=== PATIENT | female | born 1955 | race Hispanic/Latino ===

== ENCOUNTER 2018-04-08 20:55 | Emergency (ER) | payer OTHER ==
[2018-04-08 20:56] VITALS: BMI 33.6
[2018-04-08 21:25] VITALS: BP 110/69; PULSE 95; RESP 20; TEMP 98.5; O2SAT 95
--- NOTE | 2018-04-08 21:40 | C.PDOC ---
History Of Present Illness <Kelsey Webb - Last Filed: 04/08/18 21:41> <Blayne Salcido DO - Last Filed: 04/09/18 00:07> Patient is a 62 year old female who reports for evaluation after she fell after she drank alcohol today. She was reportedly at drinking at a bar tonight when she felt dizzy, and fell off the barstool and hit her head. Now complains of pain to her head and face. at bedside. Unable to obtain ROS since patient is intoxicated. (Kelsey Webb) <Kelsey Webb - Last Filed: 04/08/18 21:41> <Blayne Salcido DO - Last Filed: 04/09/18 00:07> - HPI Chief Complaint (Nursing): Trauma Past Medical History - Medical History PMH: Arthritis, Depression (NOT ON MEDS), Hypercholesterolemia, Hypothyroidism, Pneumonia ("MANY YEARS AGO") Denies: Chronic Kidney Disease Surgical History: Endoscopy Family History: States: Unknown Family Hx - Social History Hx Alcohol Use: Yes Hx Substance Use: No - Immunization History Hx Tetanus Toxoid Vaccination: No Hx Influenza Vaccination: No Hx Pneumococcal Vaccination: No <Kelsey Webb - Last Filed: 04/08/18 21:41> Vital Signs: Last Vital Signs Temp 98.5 F 04/08/18 21:03 Pulse 95 H 04/08/18 21:03 Resp 20 04/08/18 21:03 BP 110/69 04/08/18 21:03 Pulse Ox 95 04/08/18 21:53 Review Of Systems Review Of Systems: ROS cannot be obtained secondary to pt's inabilty to answer questions. <Kelsey Webb - Last Filed: 04/08/18 21:41> Physical Exam - Physical Exam Appears: Other (Intoxicated, able to speak but gets distracted easily.) Skin: Warm, Dry Head: Swelling (Swelling and tenderness to right parietal scalp. No active bleeding noted. ), Abrasion (Abrasion with dried blood to nasal bridge, abrasion above right eyebrow and abrasion above lip on right ) Eye(s): bilateral: PERRL, EOMI Nose: No Discharge, No Epistaxis Oral Mucosa: Moist Lips: No Contusion, No Laceration Teeth: Other (Only has upper teeth. No lower teeth. ) Neck: No Midline Cervical Tenderness, No Paracervical Tenderness Cardiovascular: Rhythm Regular Respiratory: Normal Breath Sounds, No Rales, No Rhonchi, No Stridor, No Wheezing Gastrointestinal/Abdominal: Bowel Sounds, Soft, No Tenderness Back: No CVA Tenderness, No Vertebral Tenderness Extremity: Other (Abrasion to right knee with dried blood. Good ROM of hips and knees without tenderness or obvious deformity. ) Extremity: Bilateral: Hips Non-Tender, No Pedal Edema, Pelvis-Stable Pulses: Left Dorsalis Pedis: Normal, Right Dorsalis Pedis: Normal <Kelsey Webb - Last Filed: 04/08/18 21:41> ED Course And Treatment O2 Sat by Pulse Oximetry: 95 <Kelsey Webb - Last Filed: 04/08/18 21:41> Medical Decision Making <Kelsey Webb - Last Filed: 04/08/18 21:41> <Blayne Salcido DO - Last Filed: 04/09/18 00:07> Medical Decision Making: CT head ordered CT facial bones ordered Tylenol 650mg PO ordered. (Kelsey Webb) Disposition <Kelsey Webb - Last Filed: 04/08/18 21:41> - Disposition Disposition Time: 11:45 <Blayne Salcido DO - Last Filed: 04/09/18 00:07> - Disposition Referrals: Andreas Birmingham MD [Medical Doctor] - Disposition: HOME/ ROUTINE Condition: GOOD Additional Instructions: DARLEEN SULTANA, thank you for letting us take care of you today. The emergency medical care you received today was directed at your acute symptoms. If you were prescribed any medication, please fill it and take as directed. It may take several days for your symptoms to resolve. Return to the Emergency Department if your symptoms worsen, do not improve, or if you have any other problems. Please contact your doctor or call one of the physicians/clinics you have been referred to that are listed on the Patient Visit Information form that is included in your discharge packet. Bring any paperwork you were given at discharge with you along with any medications you are taking to your follow up visit. Our treatment cannot replace ongoing medical care by a primary care provider outside of the emergency department. Thank you for allowing the [facility] team to be part of your care today. Do not drink too much alcohol at one time. Continue taking the antibiotic medication you are already on until it is completed. Follow up with your primary care doctor in 2-3 days for re-evaluation and further management. Prescriptions: Ibuprofen [Motrin] 600 mg PO Q6 PRN #20 tab PRN Reason: Pain, Moderate (4-7) Instructions: Alcohol Use - When Is Drinking a Problem? Forms: [employer] (Frisian) - Clinical Impression Clinical Impression: Alcohol use, Maxillary sinus fracture Critical Care Time - PA / ENTEROSTOMAL THERAPY NURSE / Resident Statement ELISEO has reviewed & agrees with the documentation as recorded. / has examined the patient and agrees with the treatment plan. <Blayne Salcido DO - Last Filed: 04/09/18 00:07>
--- NOTE | 2018-04-09 13:52 | CT ---
Date of service: 04/08/2018 PROCEDURE: CT HEAD WITHOUT CONTRAST. HISTORY: s/p fall r/o ICH and fx COMPARISON: None available. TECHNIQUE: Axial computed tomography images were obtained through the head/brain without intravenous contrast. Radiation dose: Total exam DLP = 991.58 mGy-cm. This CT exam was performed using one or more of the following dose reduction techniques: Automated exposure control, adjustment of the mA and/or kV according to patient size, and/or use of iterative reconstruction technique. FINDINGS: HEMORRHAGE: No intracranial hemorrhage. BRAIN: There is minimal, proportional expansion of the ventricular sulcal sternal spaces compatible with diffuse cerebral atrophy. Good corticomedullary differentiation is preserved diffusely and there is borderline periventricular white matter lucency compatible chronic microangiopathy. 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 Follow-up MRI is advised with and without contrast for greater characterization of the brain including this finding. No hydrocephalus throughout. The posterior fossa contents appear unremarkable as well as the remaining midline brain anatomy. Motion artifacts distort this examination mildly. VENTRICLES: Unremarkable. No hydrocephalus. CALVARIUM: Unremarkable. PARANASAL SINUSES: Unremarkable as visualized. No significant inflammatory changes. MASTOID AIR CELLS: Unremarkable as visualized. No inflammatory changes. OTHER FINDINGS: None. IMPRESSION: 1. 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 Given lack hydrocephalus, this is likely within the 3rd ventricle rather than the foramen of Monro. 2. Limited age related neuro degenerative changes, age appropriate. Concordant preliminary report from [facility], 04/08/2018.
--- NOTE | 2018-04-09 13:59 | CT ---
Date of service: 04/08/2018 PROCEDURE: CT MAXILLOFACIAL BONES WITHOUT CONTRAST HISTORY: r/o fx COMPARISON: None available. TECHNIQUE: Contiguous axial CT images of the maxillofacial bones were obtained. Coronal and sagittal reformats were generated. Radiation dose: Total exam DLP = 695.55 mGy-cm. This CT exam was performed using one or more of the following dose reduction techniques: Automated exposure control, adjustment of the mA and/or kV according to patient size, and/or use of iterative reconstruction technique. FINDINGS: NASAL BONES: Unremarkable. ORBITS: Unremarkable. PARANASAL SINUSES/ MASTOIDS: Clear. MAXILLA: Limited depression of the right anterior maxillary sinus may reflect chronic fracture. No local soft tissue edema is appreciate that would suggest acute fracture. No cortical disruption appreciated grossly. Left axilla appears unremarkable. MANDIBLE/ TEMPOROMANDIBULAR JOINTS: Unremarkable. SKULL BASE: Unremarkable. TEMPORAL BONES: Middle ears and mastoid grossly unremarkable. OTHER FINDINGS: Incidental sub cm likely colloid cyst and anterior 3rd ventricle. IMPRESSION: No definite acute fracture of the facial bones as discussed above though chronic healed minimal depression of the right anterior maxillary sinus wall without local edema likely reflects old healed fracture. No cortical disruption associated. Incidental sub cm low likely colloid cyst anterior 3rd ventricle in the brain separately described in head CT also performed 04/08/2018. Please separate report. Discordant preliminary report from [facility] 04/08/2018.
== END 2018-04-08 23:26 | disposition home or self-care (01) ==
LOC: C.ER 20:55
DX: Z72.89 Other problems related to lifestyle (principal); S02.40CA Maxillary fracture, right side, initial encounter for closed fracture; W19.XXXA Unspecified fall, initial encounter; Y92.89 Other specified places as the place of occurrence of the external cause; E78.00 Pure hypercholesterolemia, unspecified; E03.9 Hypothyroidism, unspecified